=== PATIENT | male | born 1990 | race Caucasian/White ===

== ENCOUNTER 2018-05-18 18:24 | Emergency (ER) | payer OTHER ==
[~2018-05-18] VITALS: Ht 188 cm; Wt 95.3 kg
[~2018-05-18 18:24] MED LIST: HYDROCODON-ACE1 EAC7 PO; KEFLEX500 MG PO; NOHOMEMEDICATIONS; PHENERGAN 25 MG25 MG PO
[2018-05-18] MEDS ORDERED: TRIAMCINOLONE A15 G1 TOP (18:52)
[2018-05-18] MEDS ORDERED: MEDROLDOSEPACK PO (18:52)
[2018-05-18 19:00] VITALS: BP 137/84
== END 2018-05-18 19:22 | disposition home or self-care (01) ==
LOC: M.ERS 18:24
DX: L23.7 Allergic contact dermatitis due to plants, except food (principal)

== ENCOUNTER 2019-09-18 17:35 | Emergency (ER) | payer OTHER ==
[~2019-09-18] VITALS: Ht 188 cm; Wt 97.5 kg
[~2019-09-18 17:35] MED LIST changes: +MEDROLDOSEPACK PO; +TRIAMCINOLONE A15 G1 TOP
[2019-09-18 18:25] VITALS: BP 118/67
== END 2019-09-18 18:26 | disposition home or self-care (01) ==
LOC: M.ERS 17:35
DX: S61.412A Laceration without foreign body of left hand, initial encounter (principal); W26.0XXA Contact with knife, initial encounter; Y93.89 Activity, other specified; Y92.89 Other specified places as the place of occurrence of the external cause; Y99.8 Other external cause status

== ENCOUNTER 2021-04-04 22:33 | Emergency (ER) | payer OTHER ==
[~2021-04-04] VITALS: Ht 188 cm; Wt 99.8 kg
[2021-04-04] MEDS ORDERED: ZOLOFT100 MG PO (22:38)
[2021-04-04] MEDS ORDERED: ABILIFY15 MG PO (22:38)
[2021-04-05 00:20] VITALS: BP 158/88
== END 2021-04-05 00:21 | disposition short-term general hospital (02) ==
LOC: M.ERS 22:33
DX: S02.69XA Fracture of mandible of other specified site, initial encounter for closed fracture (principal); X97.XXXA Assault by smoke, fire and flames, initial encounter; Y93.89 Activity, other specified; Y92.89 Other specified places as the place of occurrence of the external cause; Y99.8 Other external cause status